=== PATIENT | female | born 1985 | race Two or more races ===

== ENCOUNTER → 2021-05-14 | Outpatient (CLI) | payer OTHER ==
--- NOTE | 2021-05-14 10:12 | RAD ---
EXAM: US ABDOMEN OR LOWER BACK LIMITED 05/14/2021 9:18 AM CLINICAL INDICATION: Right lower quadrant pain, history of hematoma COMPARISON: None TECHNIQUE: Grayscale and color Doppler ultrasound images of the right lower quadrant area of pain FINDINGS: There is a 1.1 x 0.7 x 0.7 cm intramuscular anechoic fluid collection the right lower quad rant abdominal wall. This has no internal vascularity or surrounding hyperemia. No abdominal hernia s een IMPRESSION: 1 cm intramuscular fluid collection in the right lower quadrant abdominal wall, possibly a resolving hematoma given the reported history. Electronically signed by: Taylor Gonzalez MD (05/14/2021 10:09 AM) [id number]
== END ==
LOC: US 09:10
PROVIDERS: ATTEND Family Medicine
DX: R10.31 Right lower quadrant pain (principal); Z86.79 Personal history of other diseases of the circulatory system
CPT/HCPCS: 76705